=== PATIENT | male | born 1985 | race Caucasian/White ===

== ENCOUNTER 2016-06-04 06:58 | Day surgery (SDC) | payer BC ==
[2016-06-02 11:50] VITALS: BMI 27.8
[~2016-06-04 06:58] MED LIST: LACTATED RINGERS 1,000 ML IV SCH
[2016-06-04 07:26] VITALS: TEMP 97.7
[2016-06-04] MEDS ORDERED: PROPOFOL 10 MG/ML 20 ML VIAL IV ONE (07:47)
[2016-06-04 08:02] VITALS: RESP 16
--- NOTE | 2016-06-04 08:03 | P.PCN ---
Date of Procedure: 06/04/16 Procedure(s) Performed: BRIEF HISTORY: Patient is a 30-year-old, pleasant, white male, scheduled for an upper endoscopy as a part of evaluation of intermittent dysphagia to solids for the last several years duration. He can't the patient he was diagnosed with esophageal stricture for which she underwent esophageal dilation the past and the last one was about 7 years ago. For the last 3 months is been having progressive dysphagia to solids and hence he scheduled for repeat upper endoscopy with dilation today. PROCEDURE PERFORMED: Esophagogastroduodenoscopy with biopsy and dilation. PREOPERATIVE DIAGNOSIS: Progressive dysphagia to solids and prior history of esophageal stricture. IV sedation per anesthesia. PROCEDURE: After informed consent was obtained, the patient was brought into the endoscopy unit. IV conscious sedation was administered by Anesthesia under continuous monitoring. Initially the Olympus GIF-140 video endoscope was inserted into the mouth. Esophagus intubated without any difficulty. It was gradually advanced into the stomach and duodenum and carefully examined. The bulb and the second part of the duodenum appeared normal. The scope at this time was withdrawn to the stomach, adequately insufflated with air, and upon careful examination, mucosa of the antrum, body, cardia and the fundus appeared normal. The scope was then withdrawn into the esophagus. The GE junction was located at 42 cm from the incisors. There was a distal esophageal stricture identified and this area was dilated initially with 12 mm balloon and subsequently 13.5 mm balloon for total of 1 minute. At this time there was brisk oozing identified and hence further dilation was not performed. The mucosal folds in the mid and distal esophagus appeared thickened, with longitudinal ridges and furrows, suspicious for eosinophilic esophagitis and hence multiple biopsies were done from this area. The rest of the esophagus appeared normal. There were no erosions or ulcerations seen and the patient tolerated the procedure well. IMPRESSION: 1. Distal esophageal stricture status post balloon dilation using 12 and 13.5 mm TTS balloon as described above. 2. Thickened distal esophageal folds with longitudinal ridges and furrows suspicious for eosinophilic esophagitis. RECOMMENDATIONS: The findings of this examination were discussed with the patient as well as his family. He was advised to follow with the biopsy results. He'll remain on appeared quite I today. He will be started on Prilosec 20 mg daily and was briefly educated about antireflux measures. He'll be seen in office in 6 weeks.
[2016-06-04 08:12] VITALS: BP 122/81; PULSE 62
--- NOTE | 2016-06-08 10:21 | CDI ---
Per your operative report "IV conscious sedation was administered by Anesthesia under continuous monitoring". Anesthesia Form indicates the method was MAC/General anesthesia. Per new CMS ([employer] and Medicaid Services) guidelines there is a change by which the work of moderate/conscious sedation will be reimbursed separately. Further clarification regarding the type of anesthesia given is needed for proper reporting purposes. Please clarify the type of sedation this patient received during the cardiac catheterization. Moderate/conscious sedation MAC (unconscious sedation) General Anesthesia Other (please specify) Please document your findings in an addendum to the Procedure Note. If you have any questions about this query, you may contact [employer], Laurita Coffman at between 8am and 6pm Tuesday-Tuesday Thank you for your time. MARINO Su
== END 2016-06-04 08:54 | disposition home or self-care (01) ==
LOC: ORWHC2ENDO 06:58
PROVIDERS: ATTEND Internal Medicine Gastroenterology
DX: K22.2 Esophageal obstruction (principal); K20.9 Esophagitis, unspecified
CPT/HCPCS: 88305; 43239; 43249; J2704; C1726